=== PATIENT | male | born 1995 ===

== ENCOUNTER 2023-09-14 08:29 | Outpatient (REF) | payer OTHER, SELFPAY ==
--- NOTE | ~2023-09-14 | US_ITS ---
EXAMINATION: US RETROPERITONEAL LIMITED (RENAL ONLY) CLINICAL INFORMATION: Renal calculus, likely passed a 5 mm left renal stone. COMPARISON: None available. TECHNIQUE: Real-time imaging of the kidneys. Limited visualization due to bowel gas.. FINDINGS: RIGHT KIDNEY: 12.3 x 5.2 x 5.9 cm (SAG x AP x TRV). No hydronephrosis. No renal calculi. Renal cortical thickness is normal. Limited visualization. LEFT KIDNEY: 12.2 x 6.6 x 6.3 cm (SAG x AP x TRV). No hydronephrosis. No renal calculi. Renal cortical thickness is normal. Limited visualization. US/US renal BI IMPRESSION: No hydronephrosis. No renal calculi. Limited visualization. This study was presented today September 15, 2023 for interpretation. Stat results provided at this time as requested by referring provider. .
== END 2023-09-14 08:30 | disposition home or self-care (01) ==
LOC: HO.UMASIMG 08:29
PROVIDERS: Visit Provider Physician Assistant Medical
DX: R03.0 Elevated blood-pressure reading, without diagnosis of hypertension (principal); N20.0 Calculus of kidney
CPT/HCPCS: 76775